=== PATIENT | female | born 1945 | race Caucasian/White ===

== ENCOUNTER → 2017-10-21 11:50 | Outpatient (CLI) | payer OTHER, SELFPAY ==
--- NOTE | 2017-10-21 11:52 | DI.US.S_ITS ---
PROCEDURE: US PELVIC COMPLETE INDICATIONS: POST MENOPAUSAL BLEEDING TECHNIQUE: Real-time scanning was performed of the pelvic organs, with image documentation. Additional endovaginal scanning was necessary due to incomplete visualization of the adnexal and endometrial structures by transabdominal scanning. COMPARISON: None. FINDINGS: Transabdominal scanning: Limited scanning through the kidneys shows no hydronephrosis. The kidneys measure 9.8 CM right and 10.8 CM left. No pathologic free abdominal or pelvic fluid. Endovaginal scanning: Uterus: Uterus is normal in size at 3.4 x 4.5 x 6.0 cm. The endometrium measures 5.4 mm in combined thickness. There is a mid anterior intramural fibroid measuring 4 x 10 x 11 mm. Ovaries: Ovaries are nonvisualized despite transvaginal imaging. IMPRESSION: 1. Endometrial thickness of 5.4 mm is slightly above the upper limits of normal for postmenopausal status with vaginal bleeding of 5.0 mm. Findings could represent endometrial hyperplasia . 2. Ovaries are nonvisualized. 3. Small 1 cm sized intramural fibroid Dictated by: Joel Santillan M.D. on 10/21/2017 at 12:48 Approved by: Joel Santillan M.D. on 10/21/2017 at 12:52
== END ==
PROVIDERS: Family Provider Physician Assistant; PCP Physician Assistant; Visit Provider Physician Assistant
DX: N95.0 Postmenopausal bleeding (principal); D25.1 Intramural leiomyoma of uterus; R93.8 Abnormal findings on diagnostic imaging of other specified body structures
CPT/HCPCS: 76830; 76856

== ENCOUNTER → 2017-10-25 10:30 | Outpatient (CLI) | payer OTHER, SELFPAY ==
--- NOTE | 2017-10-25 | DI.MG.S_ITS ---
BILATERAL DIGITAL SCREENING MAMMOGRAM 3D/2D WITH CAD: 10/25/2017 CLINICAL: Routine screening. Family history of breast cancer. Comparison is made to exams dated: 10/23/2016 mammogram, 10/18/2015 mammogram, and 08/16/2014 mammogram - [facility]. There are scattered fibroglandular elements in both breasts. Current study was also evaluated with a Computer Aided Detection (CAD) system. There are benign vascular calcifications in both breasts. There also is a biopsy clip in the right breast. No significant masses, calcifications, or other findings are seen in either breast. There has been no significant interval change. IMPRESSION: BENIGN There is no mammographic evidence of malignancy. A 1 year screening mammogram is recommended. This exam was interpreted at Station ID: [id number]. NOTE: For mammograms, a report in lay terms will be sent to the patient. Approximately 15% of breast malignancies will not be visualized mammographically. In the management of a palpable breast mass, a negative mammogram must not discourage biopsy of a clinically suspicious lesion. Electronically Signed By: Leonor [email or web address]/[email or web address]:10/25/2017 12:52:10 letter sent: Normal Exam ACR BI-RADS Category 2: Benign Finding(s) 3342F
== END ==
PROVIDERS: Family Provider Physician Assistant; PCP Physician Assistant; Visit Provider Physician Assistant
DX: Z12.31 Encounter for screening mammogram for malignant neoplasm of breast (principal); Z80.3 Family history of malignant neoplasm of breast
CPT/HCPCS: 77063; 77067

== ENCOUNTER 2017-11-13 08:33 | Day surgery (SDC) | payer OTHER, SELFPAY ==
[2017-11-13] MEDS: SODIUM CHLORIDE 0.9% 1,000 ML 42 ML IV (09:18)
[2017-11-13 09:19] VITALS: BP 158/76; PULSE 84; RESP 16; TEMP 36.1; O2SAT 94; BMI 37.2
--- NOTE | 2017-11-13 09:59 | PM.OP.ENDO ---
Operative Date/Time/Diagnoses Date of procedure: 11/13/17 Time of procedure: 10:00 Pre-op diagnosis: See indication Post-op diagnosis: other Procedure & Clinicians Study performed: EGD Same procedure as scheduled: Yes Indications: Severe GE reflux Surgeon: Dov Dos Santos Procedure Notes Procedure in detail: After informed consent was obtained the patient was placed in the left lateral decubitus position. Video upper scope was placed into the oropharynx and with the patient all told the esophagus but the esophagus stomach and duodenum were carefully examined. On withdrawal retroflex view of the GE junction was performed. The scope was removed. The patient tolerated procedure well Blood loss none Complications none Sedation Versed 4 mg fentanyl 100 mcg IV titration Total sedation time 12 min Findings 1. Completely normal esophagus with no evidence of abnormal tissue above the level of the gastric folds and no esophagitis 2. Mild streaky gastric erythema biopsies taken to rule out Helicobacter 3. Normal duodenal bulb and sweep I would continue her on her current medication but if she would like some direction as to how to adjust her medication she should follow up in the office. All
--- NOTE | 2017-11-13 10:15 | PM.HP.1 ---
History of Present Illness Date Patient Seen: 11/13/17 Time Patient Seen: 10:15 Chief complaint: [id number] Narrative: History of adenomatous colon polyps Patient History Medical History Diabetes (Chronic Unknown) Hyperlipemia (Chronic Unknown) Hypertension (Chronic Unknown) Osteoarthritis (Chronic Unknown) Surgical History Hx of cataract surgery (Resolved Unknown) Family & Social History Social History: household members spouse Tobacco & Substance use: Smoking Status Former smoker alcohol intake former Meds Home Medications Medication Instructions Recorded Confirmed Type Glucose: Home Monitor dev #1 04/09/12 10/08/17 Rx aspirin 81 mg PO QDAY #0 07/09/12 10/08/17 History lisinopril [Prinivil] 20 mg PO Q DAY #90 tab 08/29/16 10/08/17 Rx triamterene-hydrochlorothiazid 1 cap PO QDAY #90 cap 08/29/16 10/08/17 Rx [Dyazide] ascorbic acid (vitamin C) 500 mg PO QDAY #0 02/28/17 10/08/17 History [place] ea BID #200 06/03/17 10/08/17 Rx Glucose: Test Strips str BID #100 06/26/17 10/08/17 Rx Lancets 0 dev BID #100 06/26/17 10/08/17 Rx simvastatin [Zocor] 10 mg PO HS #90 tab 06/26/17 10/08/17 Rx metformin 1,000 mg tablet 1,000 mg PO BID #180 tab 09/09/17 10/08/17 Rx cholecalciferol (vitamin D3) 2,000 2,000 unit PO DAILY 09/23/17 10/08/17 History unit capsule fexofenadine 180 mg tablet 180 mg PO DAILY 09/23/17 10/08/17 History insulin NPH isophane U-100 human 50 unit SUBCUT BID ml 09/23/17 10/08/17 History 100 unit/mL subcutaneous suspension insulin regular human 10 unit SUBCUT TID ml 09/23/17 10/08/17 History U-500concentrate 500 unit/mL subcutaneous soln Allergies Allergy/AdvReac Type Severity Reaction Status Date / Time No Known Drug Allergies Allergy Verified 11/13/17 09:38 Exam Vital Signs (past 8 hours): - 11/13/17 09:19 Temperature 97 F L Pulse Rate 84 Respiratory Rate 16 Blood Pressure 158/76 H Pulse Oximetry 94 Oxygen Delivery Method Room Air Narrative Exam Narrative: Oropharynx free of lesions Chest clear to auscultation percussion Cardiac exam reveals no S3 or murmur Assessment & Plan Plan: Assessment/Plan Narrative: Personal history of colon polyps, need for colonoscopy. Risks, benefits, alternatives have been explained.
--- NOTE | 2017-11-13 10:31 | PM.OP.ENDO ---
Operative Date/Time/Diagnoses Date of procedure: 11/13/17 Time of procedure: 10:31 Pre-op diagnosis: See indications Post-op diagnosis: same (See findings) Procedure & Clinicians Study performed: Colonoscopy Same procedure as scheduled: Yes Indications: Personal history of colon polyps Surgeon: Dov Dos Santos Procedure Notes Procedure in detail: After informed consent was obtained the patient was placed in left lateral decubitus position. The video colonoscope was introduced the rectum slowly advanced to the cecum. On slow withdrawal mucosa was carefully examined. Preparation was good. Scope was removed. The patient tolerated the procedure well. Blood loss none Complications none Sedation Versed 6 mg fentanyl 150 mcg IV titration Total sedation time 20 min Findings 1. Extensive sigmoid and left-sided diverticulosis with some adhesed segments that were uncomfortable for the patient. No evidence of diverticulitis or other inflammation. 2. Otherwise negative colonoscopy to cecum. Patient will be follow up colonoscopy in 5 years
[2017-11-13] MEDS: fentaNYL 250 MCG/5 ML INJ IV (10:52)
[2017-11-13] MEDS: MIDAZOLAM 5 MG/5 ML VIAL IV (10:52)
[2017-11-13 11:09] VITALS: BP 94/70; PULSE 77; RESP 14; TEMP 36.7; O2SAT 92
[2017-11-13 11:14] VITALS: BP 87/51; PULSE 71; RESP 16; O2SAT 93
[2017-11-13 11:29] VITALS: BP 110/60; PULSE 69; RESP 12; TEMP 36.3; O2SAT 94
== END 2017-11-13 11:41 | disposition home or self-care (01) ==
PROVIDERS: PCP Physician Assistant; Visit Provider Internal Medicine Gastroenterology
PROC: 0DJD8ZZ Inspection of Lower Intestinal Tract, Via Natural or Artificial Opening Endoscopic (ICD-10-PCS; CPT 45378; principal; 2017-11-13 10:30)
DX: K57.30 Diverticulosis of large intestine without perforation or abscess without bleeding (principal); E11.9 Type 2 diabetes mellitus without complications; E78.5 Hyperlipidemia, unspecified; I10 Essential (primary) hypertension; Z87.891 Personal history of nicotine dependence
CPT/HCPCS: G0105; J2250; J3010

== ENCOUNTER → 2017-11-25 14:29 | Outpatient (CLI) | payer OTHER, SELFPAY ==
--- NOTE | 2017-11-25 | DI.MRI.S_ITS ---
PROCEDURE: MR KNEE RT WO CON INDICATIONS: PAIN IN KNEE TECHNIQUE: Noncontrast sagittal PD fast spin echo and T2 fast spin echo with fat saturation, sagittal 3-D FLASH with fat saturation; coronal T1 spin echo and PD fast spin echo with fat saturation, and axial PD fast spin echo with fat saturation through the knee. COMPARISON: None. FINDINGS: Image quality: Excellent. Menisci: There is peripheral displacement of medial meniscus with bowing of medial collateral ligament. A complex tear involving body and posterior horn of medial meniscus is likely present extending to superior and inferior articulating surfaces. There is also suggestion of oblique tear involving anterior horn of lateral meniscus extending to inferior articulating surface. The meniscal root ligaments appear intact. Cruciate ligaments: The anterior and posterior cruciate ligaments appear intact. Medial structures: The medial collateral ligament appears intact. The posterior oblique ligament, semimembranosus tendon insertions, oblique popliteal ligament, and meniscocapsular junction appear intact. Visualized portions of the pes anserinus tendons appear normal. No abnormal bursal fluid. Lateral structures: The lateral collateral ligament, long and short heads of the biceps femoris tendon appear intact. The popliteus tendon appears normal; the popliteofibular ligament appears intact. The posterosuperior and anteroinferior popliteomeniscal fascicles appear intact. The arcuate and fabellofibular ligaments appear intact, on either side of the lateral inferior geniculate artery. Iliotibial band appears normal. Anterior structures: The quadriceps tendon is intact. There is suggestion of tendinosis involving proximal patellar tendon at its inferior patella insertion. No patella tendon rupture. Patellar alignment is normal. No femoral trochlear dysplasia or ventral trochlear prominence. No edema in the infrapatellar fat pad. Bones and cartilage: No bone marrow contusions or fractures. Moderate tricompartmental osteophyte is seen most prominent in the medial femoral tibial compartment. Patellar cartilage is grossly intact. Joint space: There is small to moderate amount of joint effusion.. No Rhodes's cyst. Normal appearing synovial plicae are incidentally noted. IMPRESSION: 1. Moderate tricompartmental osteoarthritis most prominent in medial femorotibial compartment. Small to moderate amount of joint effusion. No fracture or dislocation. No gross loose body. 2. Complex tear involving body and posterior horn of medial meniscus extending to both superior and inferior articulating surfaces. Peripheral displacement of the meniscus bowing medial collateral ligament. 3. Suggestion of subtle oblique tear involving anterior horn lateral meniscus extending to inferior articulating surface. 4. Cruciate ligaments are intact. 5. Tendinosis involving proximal patellar tendon at its inferior patella insertion. Dictated by: Edgard Moses M.D. on 11/25/2017 at 19:11 Approved by: Edgard Moses M.D. on 11/25/2017 at 19:15
== END ==
PROVIDERS: PCP Physician Assistant; Visit Provider Orthopaedic Surgery
DX: M25.561 Pain in right knee (principal); M17.11 Unilateral primary osteoarthritis, right knee; S83.231A Complex tear of medial meniscus, current injury, right knee, initial encounter
CPT/HCPCS: 73721

== ENCOUNTER → 2017-12-18 09:23 | Outpatient (CLI) | payer OTHER, SELFPAY ==
[2017-12-18 09:40] LABS: Bacteria Urine None Seen; RBC Urine None Seen (0-5/HPF); WBC Urine None Seen (0-5/HPF)
[2017-12-18 10:23] LABS: Add Manual Diff / Slide Review NO; Basophils Percent Auto 0.8 % (0-2); Eosinophils Percent Auto 4.5 % (2-4); Hematocrit 40.3 % (36-46); Hemoglobin 13.6 g/dL (12.0-16.0); Lymphocytes Percent Auto 21.5 % (25-40); Mean Corpuscular HGB Conc 33.6 % (30-36); Mean Corpuscular Hemoglobin 31.4 PG (26-34); Mean Corpuscular Volume 93.4 fL (80-100); Neutrophils Absolute Auto 4200 /uL (3000-5900); Neutrophils Percent Auto 64.2 % (50-75); Platelet Count 205 X10^3/uL (150-400); Red Blood Cell Count 4.32 X10^6/uL (4.0-5.2); Red Cell Distribution Width 13.7 % (11.6-14.8); White Blood Cell Count 6.6 X10^3/uL (4.5-11.0)
[2017-12-18 10:51] LABS: Blood Urea Nitrogen 36 mg/dL (7-17); Calcium 10.4 mg/dL (8.4-10.2); Carbon Dioxide 27 mmol/L (22-32); Chloride 101 mmol/L (98-107); Estimated Glomerular Filt Rate > 60.0 mL/min (>60); Glucose 151 mg/dL (80-110); HEMOLYSIS < 15 (0-50); Potassium 4.6 mmol/L (3.4-5.1); Sodium 141 mmol/L (137-145)
[2017-12-18 11:03] LABS: Appearance Urine UA CLEAR; Bilirubin Urine UA NEGATIVE (NEGATIVE); Color Urine UA YELLOW; Glucose Urine UA NEGATIVE (Normal); Ketones Urine UA NEGATIVE (NEGATIVE); Leukocyte Esterase Urine UA NEGATIVE (NEGATIVE); Nitrite Urine UA Negative (Negative); Occult Blood Urine UA NEGATIVE (Negative); Protein Urine UA NEGATIVE (Negative); Urobilinogen Urine UA 0.2 E.U./dL (0.2)
[2017-12-18 11:21] LABS: Hemoglobin A1C% w Est Avg Glu 7.2 % (4.0-6.0)
[2017-12-18 12:00] LABS: Culture Indicated Urine Cult Not Indicated; Urine Comments Microscopic Normal
== END ==
PROVIDERS: PCP Physician Assistant; Visit Provider Orthopaedic Surgery
DX: Z01.818 Encounter for other preprocedural examination (principal); Z01.812 Encounter for preprocedural laboratory examination; N39.9 Disorder of urinary system, unspecified; R73.09 Other abnormal glucose
CPT/HCPCS: 36415; 80048; 81001; 83036; 85025; 93005

== ENCOUNTER 2018-01-14 06:07 | Inpatient (IN) | payer OTHER, SELFPAY ==
[2017-12-30 09:57] VITALS: BMI 36.8
[2018-01-14] VITALS (14 sets, daily range): BP systolic 80–144; BP diastolic 35–73; PULSE 57–89; RESP 16–19; TEMP 36.4–36.9; O2SAT 93–99; BMI 36.8
--- NOTE | 2018-01-14 06:00 | DI.RAD.S_ITS ---
PROCEDURE: XR KNEE RT 1TO2V INDICATIONS: prosthesis placement TECHNIQUE: 2 view(s) of the knee acquired. COMPARISON: None. FINDINGS: Bones: Patient is status post knee joint arthroplasty. Hardware components are in expected positions. Visualized bony structures are intact. Soft tissues: Overlying postoperative changes are noted. IMPRESSION: Expected post surgical appearance. Dictated by: Brenda Quinn M.D. on 01/14/2018 at 11:33 Approved by: Brenda Quinn M.D. on 01/14/2018 at 11:33
[2018-01-14] MEDS: PREGABALIN 75 MG CAPSULE PO (06:50)
[2018-01-14] MEDS: ACETAMINOPHEN 325 MG TABLET 975 MG PO ×3 (06:50→20:55)
[2018-01-14] MEDS: CELECOXIB 200 MG CAPSULE PO (06:51)
[2018-01-14] MEDS: VANCOMYCIN 1,000 MG/200 ML FROZ.PIGGY 200 MG IV (07:01)
--- NOTE | 2018-01-14 07:44 | SUR.PREOP ---
Block start time [0745 . Monitoring initiated and maintained throughout procedure. Oxygen and medications given per anesthesiologist instructions. Patient remained stable throughout procedure, no adverse reactions noted. Block end time [0750].
--- NOTE | 2018-01-14 07:45 | PM.PREOP ---
Pre-operative Note Interval Note Pre-op Check: Yes History & Physical Reviewed by Physician and Yes Exam Performed Changes: No
--- NOTE | 2018-01-14 07:45 | PM.OP.1 ---
Operative Date/Time/Diagnoses Date of procedure: 01/14/18 Time of procedure: 07:59 Pre-op diagnosis: Right knee osteoarthritis Post-op diagnosis: same Procedure & Clinicians Procedure: right total knee arthroplasty Same procedure as scheduled: Yes Indications: The patient has had progressively worsening right knee pain with radiographic changes consistent with arthritis. Non-operative management has failed and the patient has requested total knee replacement. The risks, benefits and alternatives to surgery were discussed with the patient prior to proceeding. Risks discussed included, but were not limited to, failure to relieve pain, stiffness, infection, nerve damage, deep venous thrombosis, pulmonary embolism, stroke, coma, heart attack, permanent paralysis and , as well as the potential need for eventual revision of the prosthetic. Surgeon: Esperanza Piña Brim Pouncing Machine Operator: Anurag Vasquez Anesthesia Type: General, Spinal and Peripheral nerve block Operative Notes Findings: severe right knee osteoarthritis, good stability and balance Closure Type: primary Implants & Drains: Piña and Nephew Siobhan BCS2 35mm patella, 5 femur, 10 poly, tibia 3 Applied: drain(s) Estimated Blood Loss (mL): 250 Tourniquet time (min): 70 Procedure in detail: The patient was seen in the pre-operative area, where the patient identified the right knee as the operative site and this was marked with my initials. The patient received pre-operative antibiotics, and was taken to the operating room and placed on the operative table in the supine position. After satisfactory anesthesia, a air purifier servicer out was performed. The right leg was encircled with a tourniquet about the proximal thigh, and the leg was prepared from the toes to the tourniquet with ChloroPrep in the usual fashion and draped through sterile drapes. The leg was elevated and exsanguinated with Eschmark bandage and the tourniquet inflated to [250] mmHg pressure. The knee was approached through an approximately 18 cm incision centered over the patella and carried into the knee through a medial parapatellar arthrotomy. A portion of the medial and lateral meniscus was resected. Soft tissue was carefully mobilized around the patella the patella was measured with a caliper. Bone was resected from the patella and the patellar height was reconstituted with up an appropriate sized patellar component. A cover was then placed on the patella. A small amount of additional medial and lateral meniscus was resected. The visionare guide fit well to the distal femur. It looked like an appropriate distal femoral cut and the cut was made without difficulty. The rotation was assessed and the appropriate size femoral guide was placed on the distal femur and finishing cuts were made. There was no evidence of notching. The anterior, posterior and chamfer cuts were then made. The posterior osteophytes and soft tissues were then removed. The posterior capsule was injected with part of a mixture of 30 ml 0.25% Marcaine mixed with 20 ml Exparel for post operative pain control. The remainder of this mixture was injected into the capsule and subcutaneous tissues during cement curing. The tibia was prepared and the visionaire guide fit well to the distal tibia. The rotation was assessed. The patient was placed in extension residual medial and lateral meniscus as well as any residual bone was carefully resected. [No] additional tibia was resected. Hemostasis was achieved especially posteriorly. Additional local was injected into the posterior capsule. The extension gap was assessed and additional releases for gap balancing were performed as necessary. It was checked with the gap disability hearing officer. The femoral component was trial was placed and the notch was finished. Trial tibial and femoral components were then placed and the knee placed through a range of motion. Range of motion was [0-130], with good stability throughout the range. The trials were then removed, and the tibia was finished. The bone was prepared with pulsatile lavage, and dried with a sponge. Cement was applied and the final prosthetics placed. Excess cement was removed during and after cement curing. A brief Betadine soak was performed. After confirming there was no extruded cement posteriorly, the final tibial insert was placed. The knee was copiously irrigated and the tourniquet deflated. Hemostasis was obtained with the Bovie. A drain was placed and brought out superolaterally. The capsule was closed with interrupted # 1 black braided suture. The subcutaneous layer was closed with barbed sutures, and the skin with a running 3-0 V-Lock suture and Surgical glue. An Aquacel Ag dressing was applied and the patient was taken to recovery having tolerated the procedure well. Complications: none Condition: stable Disposition: Acute Care Plan for aftercare: The patient will be maintained on a standard total knee replacement protocol with weight bearing as tolerated. The patient will receive aspirin and sequential compression devices for DVT prophylaxis. The patient will be discharged home when safe for the home environment.
[2018-01-14] MEDS: LACTATED RINGERS 1,000 ML 42 ML IV ×3 (07:46→10:37)
[2018-01-14] MEDS: MIDAZOLAM 2 MG/2 ML VIAL IV (07:47)
[2018-01-14] MEDS: fentaNYL 100 MCG/2 ML INJ IV (07:48)
[2018-01-14] MEDS: INSULIN REGULAR 100 UNIT/ML 3 ML VIAL SUBCUT ×2 (07:49→20:49)
--- NOTE | 2018-01-14 07:51 | P.OP_ITS ---
Operative Date/Time/Diagnoses Date of procedure: 01/14/18 Time of procedure: 07:59 Pre-op diagnosis: Right knee osteoarthritis Post-op diagnosis: same Procedure & Clinicians Procedure: right total knee arthroplasty Same procedure as scheduled: Yes Indications: The patient has had progressively worsening right knee pain with radiographic changes consistent with arthritis. Non-operative management has failed and the patient has requested total knee replacement. The risks, benefits and alternatives to surgery were discussed with the patient prior to proceeding. Risks discussed included, but were not limited to, failure to relieve pain, stiffness, infection, nerve damage, deep venous thrombosis, pulmonary embolism, stroke, coma, heart attack, permanent paralysis and , as well as the potential need for eventual revision of the prosthetic. Surgeon: Esperanza Piña Railroad Hand: Anurag Vasquez Anesthesia Type: General, Spinal and Peripheral nerve block Operative Notes Findings: severe right knee osteoarthritis, good stability and balance Closure Type: primary Implants & Drains: Piña and Nephew Siobhan BCS2 35mm patella, 5 femur, 10 poly , tibia 3 Applied: drain(s) Estimated Blood Loss (mL): 250 Tourniquet time (min): 70 Procedure in detail: The patient was seen in the pre-operative area, where the patient identified the right knee as the operative site and this was marked with my initials. The patient received pre-operative antibiotics, and was taken to the operating room and placed on the operative table in the supine position. After satisfactory anesthesia, a second time worker out was performed. The right leg was encircled with a tourniquet about the proximal thigh, and the leg was prepared from the toes to the tourniquet with ChloroPrep in the usual fashion and draped through sterile drapes. The leg was elevated and exsanguinated with Eschmark bandage and the tourniquet inflated to [250] mmHg pressure. The knee was approached through an approximately 18 cm incision centered over the patella and carried into the knee through a medial parapatellar arthrotomy. A portion of the medial and lateral meniscus was resected. Soft tissue was carefully mobilized around the patella the patella was measured with a caliper. Bone was resected from the patella and the patellar height was reconstituted with up an appropriate sized patellar component. A cover was then placed on the patella. A small amount of additional medial and lateral meniscus was resected. The visionare guide fit well to the distal femur. It looked like an appropriate distal femoral cut and the cut was made without difficulty. The rotation was assessed and the appropriate size femoral guide was placed on the distal femur and finishing cuts were made. There was no evidence of notching. The anterior, posterior and chamfer cuts were then made. The posterior osteophytes and soft tissues were then removed. The posterior capsule was injected with part of a mixture of 30 ml 0.25% Marcaine mixed with 20 ml Exparel for post operative pain control. The remainder of this mixture was injected into the capsule and subcutaneous tissues during cement curing. The tibia was prepared and the visionaire guide fit well to the distal tibia. The rotation was assessed. The patient was placed in extension residual medial and lateral meniscus as well as any residual bone was carefully resected. [No] additional tibia was resected. Hemostasis was achieved especially posteriorly. Additional local was injected into the posterior capsule. The extension gap was assessed and additional releases for gap balancing were performed as necessary. It was checked with the gap maintenance fitter. The femoral component was trial was placed and the notch was finished. Trial tibial and femoral components were then placed and the knee placed through a range of motion. Range of motion was [ 0-130], with good stability throughout the range. The trials were then removed, and the tibia was finished. The bone was prepared with pulsatile lavage, and dried with a sponge. Cement was applied and the final prosthetics placed. Excess cement was removed during and after cement curing. A brief Betadine soak was performed. After confirming there was no extruded cement posteriorly, the final tibial insert was placed. The knee was copiously irrigated and the tourniquet deflated. Hemostasis was obtained with the Bovie. A drain was placed and brought out superolaterally. The capsule was closed with interrupted # 1 black braided suture. The subcutaneous layer was closed with barbed sutures, and the skin with a running 3-0 V-Lock suture and Surgical glue. An Aquacel Ag dressing was applied and the patient was taken to recovery having tolerated the procedure well. Complications: none Condition: stable Disposition: Acute Care Plan for aftercare: The patient will be maintained on a standard total knee replacement protocol with weight bearing as tolerated. The patient will receive aspirin and sequential compression devices for DVT prophylaxis. The patient will be discharged home when safe for the home environment.
[2018-01-14] MEDS: CEFAZOLIN 2 GM/100 ML FROZ.PIGGY IV ×3 (08:10→23:59)
--- NOTE | 2018-01-14 08:32 | SUR.OPER ---
Supine on padded OR bed. Pillow under head, arms secured on padded armboards <90 degree abduction. Safety belt across torso. Non-operative leg secured with tape over blanket over lower leg. Operative leg secured in DeMayo/Vasquez positioner. Foam padded brace at thigh of operative leg.
[2018-01-14] MEDS: BUPIVACAINE LIPOSOME 266 MG/20 ML VIAL INJ (08:46)
[2018-01-14] MEDS: BUPIVACAINE 0.25% W/ EPI VIAL 50 ML INJ (08:46)
[2018-01-14] MEDS: LACTATED RINGERS 1,000 ML 125 ML IV ×2 (11:45→20:53)
[2018-01-14] MEDS: OXYCODONE IR 5 MG TABLET PO ×3 (12:08→23:59)
[2018-01-14] MEDS: INSULIN REGULAR 100 UNIT/ML 3 ML VIAL 10 UNIT SUBCUT ×2 (13:35→16:53)
[2018-01-14] MEDS: IBUPROFEN 600 MG TABLET PO (13:46)
--- NOTE | 2018-01-14 13:58 | PT.IIE ---
Addendum entered and electronically signed by Gerri Ramírez, PT 01/14/18 16:00: I certify I directly supervised and guided this session, which was actually 35 minutes, not 223 minutes long. Bairon Ramírez DPJose Enrique Original Note: Current Diagnoses Unilateral primary osteoarthritis, right knee (01/14/18) Surgery Performed Operation Date: 01/14/18 07:45 Actual Procedures p Total Knee Arthroplasty(Right) - Esperanza Piña MD Surgical History (Last Updated 12/30/17 @ 10:18 by Roselia Maldonado RN) Hx of cataract surgery (Resolved Unknown) Medical History (Last Updated 12/30/17 @ 10:23 by Roselia Maldonado RN) Back pain (Acute) Diverticulosis (Acute) Pneumonia (Acute) Uterine fibroid (Acute) Diabetes (Chronic Unknown) Hyperlipemia (Chronic Unknown) Hypertension (Chronic Unknown) Osteoarthritis (Chronic Unknown) Physical Therapy Inpatient Evaluation/Re-Eval M1 PT/OT-IP Prior Functional Status Start: 01/14/18 15:22 Freq: NEEDED Status: Active Protocol: Document 01/14/18 13:58 (Rec: 01/14/18 15:45 [email or web address]) Medical Review Prior Functional Status Medical History Reviewed Yes Communication No previous deficits noted Mobility and Gait Pt was previously independent with all mobiliites and no AD. Walking tolerance was 5000- 6000 steps before her knees became worse recently. Social History Household Members spouse Living Arrangements House Number of Floors (Floors) Two Floors Number of Stairs To Enter/Railing? Flat entry. Pt also has 2 steps B rails inside that go to a mechanical stair lift chair to the 2nd floor. Home Environment High Toilet Walk in Shower Home Equipment Front Wheel Walker Straight Cane Employment Status Retired Additional Social History Comment will be avaliable 08/10 for assist at home when d/c. Pt has 2 daughters that live nearby that are avaliable for intermittent assist. Pt also owns stair lift chair for going to 2nd floor. Home is set up for pt to live entirely on the first floor. M2 PT-IP Current Condition Start: 01/14/18 15:22 Freq: NEEDED Status: Active Protocol: Document 01/14/18 13:58 (Rec: 01/14/18 15:45 [email or web address]) Physical Therapy Current Condition Current Condition Evaluation Date 01/14/18 Treatment Diagnosis R TKA; difficulty walking Onset Date 01/14/2018 Weight Bearing Status Weight Bearing Status Weight Bear as Tolerated M3 PT-IP Subjective Start: 01/14/18 15:22 Freq: NEEDED Status: Active Protocol: Document 01/14/18 13:58 (Rec: 01/14/18 15:45 [email or web address]) Subjective Physical Therapy Visit Type Type Initial Evaluation Visit Start Time 13:58 Visit Stop Time 14:33 Total Visit Minutes 223 Number of PANEL FITTER Visits 0 Physical Therapy Visit Comments Patient Comments Pt agreeable to mobilize with PT. Patient Goals Pt plans to go home with at d/c Therapy Pain Assessment Pain When Pain Assessed During Mobility Pain Present Pain Present Pain Reported Location Right Knee Intensity 5 Scale Used Numeric (1 - 10) Pain Management Techniques Apply Cold Elevation Modification of Treatment Re-positioning Timing of Activity with Medications M4 PT-IP Mobility and Gait Start: 01/14/18 15:22 Freq: NEEDED Status: Active Protocol: Document 01/14/18 13:58 (Rec: 01/14/18 15:45 [email or web address]) PT-Bed Mobility Assessment Supine to Sit Supine to Sit Minimal Assistance Scooting Scooting to Edge of Bed Standby Assistance PT-Transfer Assessment Sit to and From Stand Sit to and from Stand Contact Guard Assistance Minimal Assistance Equipment Transfer Assistive Device Gait Belt Front Wheeled Walker Orthotic/Prosthetic Devices or Brace: No Transfers Transfer Destination Chair Comments Mobility Comments supine BP 111/62, HR 62. supine > sit required Shala for lifting leg off bedside as well as to assist pt upright. Mod cues needed for hand placement. EOB BP 117/73, HR 63. Sit > stand with fww is Shala for balance with cues for hand placement and to power off LLE. Stand > sit (post ambulation) is CGA with fww. Gait Assessment Gait Gait Assistance Required: Contact Guard Assist Distance (Feet) 10 Able to Maintain Weight Bearing Status Yes During Gait Assistive Devices Assistive Device Gait Belt Front Wheeled Walker Orthotic/Prosthetic Devices or Brace: No Gait Deviations General Gait Pattern Antalgic Decreased Stride Length Decreased Feet Clearance Factors Limiting Gait Function Factors Limiting Gait Function Decreased Activity Tolerance Decreased Strength Limited Range of Motion Pain Poor Balance Poor Safety Awareness Comments Gait Comments Pt ambulated 10 ft CGA with fww and about alf through stated feeling naseus. Assisted pt to recliner where she dry heaved for 1-2 mins. Pt cued for deep breathing, given wet cloth to forehead and emesis bag. Nursing notified/came in to assist. Seated BP 120/71 HR 66. Pt was left with nursing. PT-Balance Assessment Sitting Balance and Reactions Static Sitting Balance Ability Good Dynamic Sitting Balance Ability Good Standing Balance and Reactions Static Standing Balance Ability Fair Dynamic Standing Balance Ability Fair Device Used fww M5 PT-IP Objective Assessments Start: 01/14/18 15:22 Freq: NEEDED Status: Active Protocol: Document 01/14/18 13:58 (Rec: 01/14/18 15:45 [email or web address]) Orientation Orientation/Cognition Level of Alertness Alert Orientation Name Birthday Place Situation Language Function Ability No Deficits Noted Safety Awareness Decreased Safety Awareness Gross Range of Motion Lower Extremity ROM Assessment Right Impaired Impairments R knee flexion ~30 degrees and painful. Strength Lower Extremity Strength Assessment Right Impaired Hip 4 Knee 3 Ankle 5 Comments Strength Comments LLE WNL M6 PT-IP Treatment Start: 01/14/18 15:22 Freq: NEEDED Status: Active Protocol: Document 01/14/18 13:58 (Rec: 01/14/18 15:45 [email or web address]) Physical Therapy Treatment Exercises Exercises Ankle Pumps Quad Sets Heel Slides Straight Leg Raises Short Arc Quads Passive Knee Extension Hang Seated Knee Flexion/Extension Education Education Provided Precautions Weight Bearing Status Post-Op Packet Safety M7 PT-IP Assessment and Plan Start: 01/14/18 15:22 Freq: NEEDED Status: Active Protocol: Document 01/14/18 13:58 (Rec: 01/14/18 15:45 [email or web address]) PT Summary Assessment and Plan Potential Rehabilitation Potential Good Status of Condition at Evaluation Stable Summary Impairments Pain ROM Strength Balance Bed Mobility Transfers Gait Activity Tolerance Progress Towards Goals Progressing Toward Goals Assessment Summary Pt s/p RTKA with difficulty walking. Pt was able to ambulate 10 ft with fww and CGA but had episode of dry heaving. Min A needed for bed mob and sit > stand. Recommend d/c to home with 24/ 7 assist and f/u OP PT when pt is medically stable. Goals Bed Mobility Goal Standby Assistance Transfer Goal Standby Assistance Gait Goal Standby Assistance Gait Distance 150 Other Goals up/down 2 steps B rails with CGA Frequency of Treatment Frequency Of Treatment Twice a Day Treatment Plan Physical Therapy Treatment Plan Bed Mobility Training Transfer Training Gait Training Therapeutic Exercise Balance Retraining Post Op Education Discharge Planning Hot or Cold Pack Neuromuscular Re-ed Coordination Retraining Manual Therapy Other Recommendations and Next Treatment Ambulation. Stair climbing Focus Recommendations To Nursing Amount of Assist Needed 1 Person Assist Discharge Recommendations PT Discharge Recommendations Home with 24/7 Assist Outpatient PT
--- NOTE | 2018-01-14 14:08 | PC.NURSE ---
Day Shift- Report rec'd from COLTEN Silva in PACU at 1052 on current pt status. Pt arrived to unit at 1115. A&OX4, denied pain upon arrival, increased to 4/10 around 1205, Oxycodone po prn given at 1210 with satisfactory effect. Upon arrival, pt able to flex at ankles, weak to moderate dorsal and plantar flexion, able to slightly lift RLE off bed. pulses palpable, trace edema to dorsal bilateral feet. Right knee aquacel dressing CDI covered with khanh wrap, ice prn rotated around knee. Hemovac clamped upon arrival, unclamped at 1210 per orders, PACU report stated was clamped at 1001. Pt's at bedside. Oriented to call light and post op routines.
--- NOTE | 2018-01-14 14:54 | PM.CN ---
History of Present Illness Date Patient Seen: 01/14/18 Time Patient Seen: 14:00 Chief complaint: [id number] Reason for consult: Diabetes Requesting provider: Esperanza Piña Narrative: Patient is a 73-year-old female status post elective right TKR earlier today. We were consulted regarding management of patient's diabetes. She has long-standing diabetes which was not well controlled. She recently established with local hand booked folder and stitcher who started her on insulin with very good improvement in her blood sugar control. Last hemoglobin A1c was 7.2. Patient denies hypoglycemic episodes on insulin therapy. She denies complications of diabetes such as retinopathy, neuropathy or nephropathy. She has no cardiac problems. Recorded blood sugars in hospital have been mostly acceptable 114 up to 149 but she did have glucose of 242 just before supper. PFSH Medical History Back pain (Acute) Diverticulosis (Acute) Pneumonia (Acute) Uterine fibroid (Acute) Diabetes (Chronic Unknown) Hyperlipemia (Chronic Unknown) Hypertension (Chronic Unknown) Osteoarthritis (Chronic Unknown) Surgical History Hx of cataract surgery (Resolved Unknown) Family History Sister Breast cancer, Onset Age: 83 Social History household members: spouse Smoking Status: Former smoker Tobacco: How many years used: 8 second hand exposure: No alcohol intake: former substance use type: does not use Meds Home Medications Medication Instructions Recorded Confirmed Type aspirin 81 mg PO QDAY #0 07/09/12 01/14/18 History ascorbic acid (vitamin C) 500 mg PO QDAY #0 02/28/17 12/30/17 History simvastatin [Zocor] 10 mg PO HS #90 tab 06/26/17 01/14/18 Rx cholecalciferol (vitamin D3) 2,000 2,000 unit PO DAILY 09/23/17 12/30/17 History unit capsule fexofenadine 180 mg tablet 180 mg PO DAILY 09/23/17 01/14/18 History insulin NPH isophane U-100 human 25 unit SUBCUT QAM ml 09/23/17 01/14/18 History 100 unit/mL subcutaneous suspension lisinopril [Prinivil] 20 mg PO Q DAY #90 tab 11/21/17 01/14/18 Rx triamterene-hydrochlorothiazid 1 cap PO QDAY #90 cap 11/22/17 01/14/18 Rx [Dyazide] metformin 1,000 mg tablet 1,000 mg PO BID #180 tab 12/19/17 01/14/18 Rx empagliflozin [Jardiance] 10 mg PO QAM 12/30/17 01/14/18 History insulin NPH isoph U-100 human 28 unit SUBCUT BEDTIME 12/30/17 01/14/18 History [Humulin N NPH U-100 Insulin] insulin regular hum U-500 conc 10 unit SUBCUT TID 12/30/17 01/14/18 History Glucose: Home Monitor 1 dev MISCELLANEOUS DIRECTED 01/14/18 01/14/18 History Glucose: Test Strips 1 str MISCELLANEOUS BID 01/14/18 01/14/18 History Lancets 1 dev MISCELLANEOUS BID 01/14/18 01/14/18 History [place] 1 ea MISCELLANEOUS BID 01/14/18 01/14/18 History Allergies Allergy/AdvReac Type Severity Reaction Status Date / Time No Known Drug Allergies Allergy Verified 11/13/17 09:38 Review of Systems Review of Systems All systems reviewed & are unremarkable except as noted in HPI and below Exam Vital Signs (past 8 hours): - 01/14/18 07:04 01/14/18 10:10 01/14/18 10:15 Temperature 97.8 F 98.4 F Pulse Rate 76 83 87 Respiratory Rate 18 16 18 Blood Pressure 144/73 H 84/37 L 82/36 L Pulse Oximetry 95 97 95 01/14/18 10:20 01/14/18 10:25 01/14/18 10:30 Temperature Pulse Rate 89 84 86 Respiratory Rate 19 18 16 Blood Pressure 80/35 L 87/43 L 101/48 L Pulse Oximetry 94 94 96 01/14/18 10:43 01/14/18 10:58 01/14/18 11:15 Temperature 98.4 F 98.4 F 97.6 F Pulse Rate 84 76 80 Respiratory Rate 18 16 16 Blood Pressure 95/42 L 102/52 L 102/60 Pulse Oximetry 94 94 93 01/14/18 11:45 01/14/18 12:15 Temperature 97.6 F 97.7 F Pulse Rate 77 75 Respiratory Rate 16 16 Blood Pressure 94/63 113/70 Pulse Oximetry 94 99 Oxygen Delivery Method Room Air Oxygen Flow Rate 0 Narrative Exam Narrative: GENERAL: Patient is in no acute distress HEENT: Head normocephalic, atraumatic. Mucous membranes moist. CHEST: Clear to auscultation bilaterally. CARDIAC: Regular rate and rhythm. ABDOMEN: Nondistended, soft, nontender EXTREMITIES: no pretibial edema. NEUROLOGICAL: Alert, pleasant, no focal findings SKIN: Warm, dry, no petechiae, no rash Assessment & Plan Plan: Assessment/Plan Narrative: 1. Type 2 diabetes, insulin requiring: Patient appears well controlled by history and recent hemoglobin A1c. Agree with continuing her usual insulin regimen of NPH and are insulins with a carbohydrate controlled diet. I have added a medium dose NovoLog sliding scale while she is in hospital. I do not anticipate any major problems regarding her diabetes control postop her knee replacement. Thank you for consulting the hospitalist service. At this time, patient is not in further need of our assistance. Please notify us if she needs to be re-evaluated during her hospital stay.
[2018-01-14] MEDS: INSULIN NPH 100 UNIT/ML VIAL 28 UNIT SUBCUT (20:52)
[2018-01-14] MEDS: ASPIRIN EC 81 MG TABLET PO (20:55)
[2018-01-14] MEDS: DOCUSATE 100 MG CAPSULE PO (20:56)
[2018-01-14] MEDS: SIMVASTATIN 10 MG TABLET PO (20:56)
[2018-01-14] MEDS: METFORMIN HCL 500 MG TABLET 1000 MG PO (20:56)
[2018-01-15] MEDS: IBUPROFEN 600 MG TABLET PO ×2 (01:13→07:00)
[2018-01-15 03:35] VITALS: BP 109/59; PULSE 58; RESP 16; TEMP 36.6; O2SAT 96
[2018-01-15] MEDS: OXYCODONE IR 5 MG TABLET PO ×3 (05:05→11:23)
[2018-01-15 07:04] LABS: Hematocrit 35.9 % (36-46)
[2018-01-15 08:00] VITALS: BP 129/67; PULSE 63; RESP 16; TEMP 36.7; O2SAT 96
[2018-01-15] MEDS: ACETAMINOPHEN 325 MG TABLET 975 MG PO (08:21)
[2018-01-15] MEDS: DOCUSATE 100 MG CAPSULE PO (08:23)
[2018-01-15] MEDS: INFLUENZA VACCINE 0.5 ML SYRINGE IM (08:35)
[2018-01-15] MEDS: METFORMIN HCL 500 MG TABLET 1000 MG PO (08:41)
[2018-01-15] MEDS: TRIAMTERENE/HCTZ 37.5/25 TABLET 1 CAP PO (08:44)
[2018-01-15] MEDS: INSULIN REGULAR 100 UNIT/ML 3 ML VIAL 10 UNIT SUBCUT (08:50)
[2018-01-15] MEDS: INSULIN NPH 100 UNIT/ML VIAL 25 UNIT SUBCUT (08:56)
[2018-01-15] MEDS: CHOLECALCIFEROL (VITAMIN D3) 1,000 UNIT TABLET 2000 UNIT PO (10:06)
[2018-01-15] MEDS: ASPIRIN EC 81 MG TABLET PO (10:06)
[2018-01-15] MEDS: LISINOPRIL 20 MG TABLET PO (10:06)
[2018-01-15] MEDS: ASCORBIC ACID 500 MG TABLET PO (10:06)
[2018-01-15] MEDS: LORATADINE 10 MG TABLET PO (10:06)
--- NOTE | 2018-01-15 10:44 | PC.NURSE ---
Wound Care: Drain removed at 10:15 this AM, end intact, asymptomatic, tolerated well, covered with gauze and a transparent dressing. Patient instructed to remove gauze in 48 hrs.
--- NOTE | 2018-01-15 10:50 | PT.IPTN ---
Current Diagnoses Unilateral primary osteoarthritis, right knee (01/14/18) Surgery Performed Operation Date: 01/14/18 07:45 Actual Procedures p Total Knee Arthroplasty(Right) - Esperanza Piña MD Physical Therapy Treatment Note M2 PT-IP Current Condition Start: 01/14/18 15:22 Freq: NEEDED Status: Active Protocol: Document 01/14/18 13:58 (Rec: 01/14/18 15:45 [email or web address]) Physical Therapy Current Condition Current Condition Evaluation Date 01/14/18 Treatment Diagnosis R TKA; difficulty walking Onset Date 01/14/2018 Weight Bearing Status Weight Bearing Status Weight Bear as Tolerated M3 PT-IP Subjective Start: 01/14/18 15:22 Freq: NEEDED Status: Active Protocol: Document 01/15/18 10:39 SA (Rec: 01/15/18 10:50 SA [id number]) Subjective Physical Therapy Visit Type Type Treatment Note Visit Start Time 09:35 Visit Stop Time 10:05 Total Visit Minutes 30 Number of LABOR CUSTODIAN Visits 1 Physical Therapy Visit Comments Patient Comments Pt sitting up, present and agreeable to PT. Patient Goals to return home with . Therapy Pain Assessment Pain When Pain Assessed During Mobility Pain Present Pain Present Pain Reported Location Right Knee Intensity 4 Scale Used Numeric (1 - 10) Pain Management Techniques Apply Cold Re-positioning Timing of Activity with Medications M4 PT-IP Mobility and Gait Start: 01/14/18 15:22 Freq: NEEDED Status: Active Protocol: Document 01/15/18 10:39 SA (Rec: 01/15/18 10:50 SA [id number]) PT-Bed Mobility Assessment Rolling Type of Rolling Roll to Right Level of Assist Standby Assistance Supine to Sit Supine to Sit Standby Assistance Scooting Scooting to Edge of Bed Standby Assistance PT-Transfer Assessment Sit to and From Stand Sit to and from Stand Contact Guard Assistance Use of Upper Extremities Equipment Orthotic/Prosthetic Devices or Brace: No Transfers Transfer Destination Chair Comments Mobility Comments Pt denies feeling nauseus or light headed with mobilizing. Mod cues for safety and CGA- SBa with transfers and bed mobility. Gait Assessment Gait Gait Assistance Required: Contact Guard Assist Distance (Feet) 75 Able to Maintain Weight Bearing Status Yes During Gait Assistive Devices Assistive Device Gait Belt Front Wheeled Walker Orthotic/Prosthetic Devices or Brace: No Gait Deviations General Gait Pattern Antalgic Decreased Stride Length Decreased Feet Clearance Factors Limiting Gait Function Factors Limiting Gait Function Decreased Activity Tolerance Decreased Strength Limited Range of Motion Pain Poor Balance Poor Safety Awareness Comments Gait Comments Pt able to ambulated with FWW and SBA-CGA with cues for increasing WBing on RLE. Pt receptive to cues and education. Completed Stand pivot tx on/off toilet with SBA and use of FWW and grab bar. Stair Climbing Assessment Comments Stair Climbing Comments PT has one small step to enter home, states it more of a thresh hold than a step. M5 PT-IP Objective Assessments Start: 01/14/18 15:22 Freq: NEEDED Status: Active Protocol: Document 01/14/18 13:58 (Rec: 01/14/18 15:45 [email or web address]) Orientation Orientation/Cognition Level of Alertness Alert Orientation Name Birthday Place Situation Language Function Ability No Deficits Noted Safety Awareness Decreased Safety Awareness Gross Range of Motion Lower Extremity ROM Assessment Right Impaired Impairments R knee flexion ~30 degrees and painful. Strength Lower Extremity Strength Assessment Right Impaired Hip 4 Knee 3 Ankle 5 Comments Strength Comments LLE WNL M6 PT-IP Treatment Start: 01/14/18 15:22 Freq: NEEDED Status: Active Protocol: Document 01/15/18 10:39 SA (Rec: 01/15/18 10:50 SA [id number]) Physical Therapy Treatment Exercises Exercises Ankle Pumps Quad Sets Heel Slides Straight Leg Raises Short Arc Quads Passive Knee Extension Hang Seated Knee Flexion/Extension Education Education Provided Precautions Weight Bearing Status Post-Op Packet Safety Equipment Issued Equipment Type and Company As per pt has, BSC to go over toilet, FWW, grab bars in home and ice packs. Other Treatments Other Treatment Performed Discussion with patient and about OP PT, equipment , icing and HEP. M7 PT-IP Assessment and Plan Start: 01/14/18 15:22 Freq: NEEDED Status: Active Protocol: Document 01/15/18 10:39 SA (Rec: 01/15/18 10:50 SA [id number]) PT Summary Assessment and Plan Potential Rehabilitation Potential Good Status of Condition at Evaluation Stable Summary Assessment Summary Pt with improved ambulation today and decreased pain levels. Able to transfer safely in/out of bed, toilet and chair with SBA-CGA and cues. Frequency of Treatment Frequency Of Treatment Twice a Day Recommendations To Nursing Amount of Assist Needed 1 Person Assist Discharge Recommendations PT Discharge Recommendations Home with 24/ Assist Outpatient PT
--- NOTE | 2018-01-15 11:00 | PM.DS.1 ---
History of Present Illness Date Patient Seen: 01/15/18 Time Patient Seen: 11:00 Chief complaint: [id number] Narrative: The patient has had progressively worsening right knee pain with radiographic changes consistent with arthritis. Non-operative management has failed and the patient has requested total knee replacement. The risks, benefits and alternatives to surgery were discussed with the patient prior to proceeding. Risks discussed included, but were not limited to, failure to relieve pain, stiffness, infection, nerve damage, deep venous thrombosis, pulmonary embolism, stroke, coma, heart attack, permanent paralysis and , as well as the potential need for eventual revision of the prosthetic. Discharge Providers Date of admission: 01/14/18 06:07 Primary care physician: Supriya Crews PA-C Consults: 12/30/17 10:34 Consult to Pastoral Services Routine Comment: RT TKA 01/1401/14/18 06:00 Consult to Anesthesiology Routine Comment: Consulting Provider: Anesthesiologist Reason for consultation: Regional block for post operative pain control 01/14/18 11:31 Consult to Discharge Planning Routine Comment: Consult to Hospitalist Service Routine Comment: Consulting Provider: Lopez Higgins Reason for consultation: diabetic control Has provider been notified: Yes Consult to Physical Therapy Evaluate & Treat Comment: oob today Physician Instructions: postop TKA protocol Consult to Respiratory Therapy Evaluate & Treat Comment: Physician Instructions: Evaluate and treat 01/14/18 11:59 Consult to Pastoral Services Routine Comment: post op care and encouragement Discharge provider: Pari Palomares PA-C Discharge Date: 01/15/18 Summary Discharge Diagnosis: s/p total knee arthroplasty Diabetes Hospital Course: Patient admitted for right total knee arthroplasty with Dr. Caceres, and she consented to procedure. Hospital course was unremarkable. On postop day 1. Patient was feeling well and ready to go home. Her pain was well controlled with oxycodone. ASA for DVT prophylaxis. Patient is diabetic and was evaluated by Medicine and proper insulin scale was used. She has been up with physical therapy throughout her stay. Status at Discharge Functional status at discharge: uses cane/walker Exam Vital Signs (past 8 hours): - 01/15/18 03:35 01/15/18 08:00 Temperature 97.9 F 98.0 F Pulse Rate 58 L 63 Respiratory Rate 16 16 Blood Pressure 109/59 L 129/67 Pulse Oximetry 96 96 Oxygen Delivery Method Room Air Oxygen Flow Rate 0 Narrative Exam Narrative: Patient lying in bed in no acute distress. She is alert and oriented x3. Dressing on right knee is CDI. Waldo wrap in place. Drain is still in place. Calves are soft, compressible, nontender bilaterally. Sensation intact light touch throughout bilateral lower extremities. Pulses are symmetrical. Her pain is well controlled this morning. She denies any nausea, chest pain, or shortness of breath. Objective Labs Result Diagrams: 01/15/18 06:30 Labs: Laboratory Results - last 24 hr 01/15/18 06:30 Hgb 12.0 Hct 35.9 L Discharge Plan Discharge Plan Patient Disposition: Home Discharge Med Rec/Prescriptions Prescriptions: Continue fexofenadine [Tammy Allergy] 180 mg tablet 180 mg PO DAILY RF: 0 cholecalciferol (vitamin D3) 2,000 unit capsule 2,000 unit PO DAILY RF: 0 insulin NPH isoph U-100 human [Humulin N NPH U-100 Insulin] 100 unit/mL suspension 25 unit SUBCUT QAM RF: 0 aspirin 81 MG tablet,delayed release (DR/EC) 81 mg PO QDAY Qty: 0 RF: 0 ascorbic acid (vitamin C) 500 MG tablet 500 mg PO QDAY Qty: 0 RF: 0 simvastatin [Zocor] 10 MG tablet 10 mg PO HS Qty: 90 RF: 3 lisinopril [Prinivil] 20 mg tablet 20 mg PO Q DAY Qty: 90 RF: 4 triamterene-hydrochlorothiazid [Dyazide] 37.5-25 mg capsule 1 cap PO QDAY Qty: 90 RF: 4 metformin 1,000 mg tablet 1,000 mg PO BID Qty: 180 RF: 0 insulin NPH isoph U-100 human [Humulin N NPH U-100 Insulin] 100 unit/mL Suspension 28 unit SUBCUT BEDTIME RF: 0 insulin regular hum U-500 conc 500 unit/mL (3 mL) Insulin Pen 10 unit SUBCUT TID RF: 0 empagliflozin [Jardiance] 10 mg Tablet 10 mg PO QAM RF: 0 Glucose: Home Monitor 1 dev miscellaneous DIRECTED RF: 0 Glucose: Test Strips 1 str miscellaneous BID RF: 0 Lancets 1 dev miscellaneous BID RF: 0 [place] 1 ea miscellaneous BID RF: 0 Follow up/Referrals: Esperanza Piña MD [Physician] - (Follow up in 10-14 days with TOO) Provider Discharge Instructions Cold/Heat Therapy: May use ice packs for another week. Other treatments: Leave aquacel dressing in place until follow up appointment. It will be removed then. Remove gauze dressing in 48 hours from old hemovac site. Visit Report/Discharge Packet Instructions: DI for Knee Replacement, DI for Constipation Visit Report Forms: Stroke Signs & Symptoms Discharge Data Primary Care Provider: Supriya Crews Attending Provider: Esperanza Piña Admit Date/Time: 01/14/18 06:07 Quality VTE Deep Vein Thrombosis/Pulmonary Embolism Present on Admission: No
--- NOTE | 2018-01-15 13:03 | PC.NURSE ---
Discharge: Pt feels ready to d/c home. She understands the ruano path process and had reviewed the information prior to coming in. PT has seen and they gave her their final instructions. Seen by PA and received their final instructions. Hemovac d/c intact, dry gauze dressing applied, pt and spouse understand it should be removed in 48 hours. Discussed wound care for aquacel dressing, leave in place until appointment. may shower with dressing on, pat dry, leave it alone. pt has been up in room and gait is steady. Reviewed d/c instructions and packet given. Already has rx at home. Pt understands not to take meloxicam and other NSAID's at the same time per PA instructions. Questions answered. D/c home via auto w/spouse.
--- NOTE | 2018-01-16 08:24 | CM.IDA ---
Late Entry. Attempted to meet w/pt before she left the medical floor yesterday; pt was ruano path and had DC home w/spouse. JW Discharge Planning/Care Management CM Discharge Assessment Start: 01/14/18 15:35 Freq: Status: Discharge Protocol: Document 01/14/18 15:35 KJS (Rec: 01/14/18 15:41 KJS [id number]) Discharge Planning Assessment Assigned Agricultural [employer] DONNA Barahona Contact Information Shin Garcia (spouse) [phone] Advance Directives? Yes Advance Directives on File No History Provided By Medical Record Has Patient been admitted in last 30 No days? Prior Living Arrangements House Household Members spouse Comment Unclear at this time. Patient in surgery at time of initial visit in AM on 01-14-18. Discharge Plan Home Referrals Initiated Other Whiteboard Updated in Patient Room with No name and ext. 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 Patient is a 73yr old female admitted to [facility] for [facility]opedic surgery performed on 01-14-[address] Piña. Primary payor is 1) [place]. PCP listed is Supriya Crews PA-C. Attempted to meet patient this AM to explain role. Patient currently in surgery and not anticipated to be in room until later this AM. [employer] unable to check back in with patient/family today. Will defer to [employer] for tomorrow. Review Status In Process Please Provide Date Initial DC 01/14/18 Assessment Was Performed Next Review Type Continued Stay Review Pre-Anesthesia Assessment Start: 12/30/17 09:57 Freq: Status: Complete
== END 2018-01-15 11:30 | disposition home or self-care (01) | DRG 470 ==
PROVIDERS: Admitting Provider Orthopaedic Surgery; PCP Physician Assistant; Referring Provider Internal Medicine Endocrinology, Diabetes & Metabolism; Visit Provider Orthopaedic Surgery
PROC: 0SRC0JZ Replacement of Right Knee Joint with Synthetic Substitute, Open Approach (ICD-10-PCS; CPT 27447; principal; 2018-01-14 07:45)
DX: M17.11 Unilateral primary osteoarthritis, right knee (principal); E66.9 Obesity, unspecified; Z68.37 Body mass index [BMI] 37.0-37.9, adult; I10 Essential (primary) hypertension; E11.9 Type 2 diabetes mellitus without complications; Z79.4 Long term (current) use of insulin
CPT/HCPCS: 36415; 64447; 73560; 82962; 85014; 85018; 90471; 90656; 97116; 97161; 97530; C1776; C9290; J0690; J2250; J2704; J3010; J3370; Q2038

== ENCOUNTER → 2018-02-03 16:41 | Outpatient (CLI) | payer OTHER, SELFPAY ==
[2018-01-14 11:49] VITALS: BMI 36.8
[2018-02-03 17:10] LABS: Bacteria Urine None Seen; RBC Urine None Seen (0-5/HPF); WBC Urine None Seen (0-5/HPF)
[2018-02-03 17:53] LABS: Appearance Urine UA CLEAR; Bilirubin Urine UA NEGATIVE (NEGATIVE); Color Urine UA YELLOW; Glucose Urine UA 2+ g/dL (Normal); Ketones Urine UA NEGATIVE (NEGATIVE); Leukocyte Esterase Urine UA NEGATIVE (NEGATIVE); Nitrite Urine UA NEGATIVE (Negative); Occult Blood Urine UA NEGATIVE (Negative); Protein Urine UA NEGATIVE (Negative); Urobilinogen Urine UA 0.2 E.U./dL (0.2)
[2018-02-03 18:21] LABS: Squamous Epithelial Cell Urine 1-5 /HPF
== END ==
PROVIDERS: PCP Physician Assistant; Visit Provider Physician Assistant
DX: R30.0 Dysuria (principal)
CPT/HCPCS: 81001

== ENCOUNTER → 2018-05-29 11:02 | Outpatient (CLI) | payer OTHER, SELFPAY ==
[2018-01-14 11:49] VITALS: BMI 36.8
--- NOTE | 2018-05-29 11:16 | DI.CT.S_ITS ---
PROCEDURE: CT CHEST WO CON INDICATIONS: 1 year follow lung nodule TECHNIQUE: Noncontrast 2.0-2.5 mm thick sections acquired from the pulmonary apices to the posterior costophrenic angles. 7 mm thick coronal and sagittal MIP reformats were then acquired. A low radiation dose technique was utilized. COMPARISON: [facility], CT, THORAX WITHOUT CONTRAST, 03/22/2017, 15:02. FINDINGS: Image quality: Diagnostic, given the low radiation dose technique. Lungs and pleura: A small nodular radiodensity seen 03/22/17 at the right middle lobe, at the minor fissure anteriorly is stable over time. Mediastinum: Heart size is normal. No pericardial effusion. No mediastinal adenopathy by size criteria. Thoracic aorta and central pulmonary arteries are normal in size. Esophagus is normal in caliber. No hiatal hernia. Bones and chest wall: No suspicious bony lesions. No vertebral body compression fractures. No axillary or supraclavicular adenopathy by size criteria. Thyroid gland is not well-seen by this noncontrast technique. Abdomen: Visualized upper abdomen solid organs and bowel loops appear normal in the absence of contrast. IMPRESSION: Stable appearance of a previously described 5 mm minor fissure right middle lobe region benign-appearing radiodensity given absence of change from 03/22/[address] scanning. As discussed above in this size category if the patient is low risk for now additional followup is recommended and if the patient is high risk a followup in 18-24 months would be recommended. Fleischner Society criteria for SOLID lung nodule followup. Nodule size (mm)Low-risk patientHigh-risk patient<6 (single or multiple)No routine followup.Optional CT at 12 months. 6-8 (single or multiple)CT at 6-12 months, then optional CT at 18-24 mo.CT at 6-12 months, then CT at 18-24 months. >8 (single)CT at 3 months, PET-CT, or biopsy. Same as for low-risk pts. >8 (multiple)CT at 3-6 months, then optional CT at 18-24 mo.CT at 3-6 months, then CT at 18-24 months. Recommendations do not apply to lung cancer screening, patients with immunosuppression, or patients with known primary cancer. Dictated by: Omar Wilburn M.D. on 05/29/2018 at 11:56 Approved by: Omar Wilburn M.D. on 05/29/2018 at 12:02
== END ==
PROVIDERS: PCP Physician Assistant; Visit Provider Family Medicine
DX: R91.1 Solitary pulmonary nodule (principal)
CPT/HCPCS: 71250

== ENCOUNTER → 2018-08-30 08:11 | Outpatient (CLI) | payer OTHER, SELFPAY ==
[2018-01-14 11:49] VITALS: BMI 36.8
[2018-08-30 09:00] LABS: Hemoglobin A1C% w Est Avg Glu 7.8 % (4.0-6.0)
[2018-08-30 09:20] LABS: Creatinine Urine Random 20.9 mg/dL
[2018-08-30 09:22] LABS: Alanine Aminotransferase 28 IU/L (9-52); Albumin 4.2 g/dL (3.5-5.0); Albumin Globulin Ratio 1.6 (1.0-2.8); Alkaline Phosphatase 86 U/L (38-126); Aspartate Aminotransferase 27 IU/L (14-36); BUN Creatinine Ratio 43.3 (6-22); Bilirubin Total 0.4 mg/dL (0.2-1.3); Blood Urea Nitrogen 39 mg/dL (7-17); Carbon Dioxide 27 mmol/L (22-32); Chloride 99 mmol/L (98-107); Cholesterol 132 mg/dL (140-199); Estimated Glomerular Filt Rate > 60.0 mL/min (>60); Globulin 2.6 g/dL (1.7-4.1); Glucose 96 mg/dL (80-110); HDL Cholesterol 55 mg/dL (40-60); HEMOLYSIS < 15 (0-50); LDL Cholesterol Calculated 54 mg/dL (<100); Potassium 4.4 mmol/L (3.4-5.1); Sodium 135 mmol/L (137-145); Total Protein 6.8 g/dL (6.3-8.2); Triglycerides 114 mg/dL (35-150)
[2018-08-30 09:25] LABS: Microalbumi Creatinin Ratio Ur 28.7 ug/mg CR (<30); Microalbumin Urine Random < 0.6 mg/dL (0-1.6)
== END ==
PROVIDERS: PCP Physician Assistant; Visit Provider Physician Assistant
DX: E11.9 Type 2 diabetes mellitus without complications (principal); E78.5 Hyperlipidemia, unspecified; I10 Essential (primary) hypertension
CPT/HCPCS: 36415; 80053; 80061; 82043; 82570; 83036

== ENCOUNTER → 2018-10-29 11:30 | Outpatient (CLI) | payer OTHER, SELFPAY ==
[2018-01-14 11:49] VITALS: BMI 36.8
--- NOTE | 2018-10-29 11:32 | DI.MG.S_ITS ---
BILATERAL DIGITAL SCREENING MAMMOGRAM 3D/2D WITH CAD: 10/29/2018 CLINICAL: Routine screening. Family history of breast cancer. Comparison is made to exams dated: 10/25/2017 mammogram, 10/23/2016 mammogram, and 10/18/2015 mammogram - [facility]. There are scattered fibroglandular elements in both breasts. Current study was also evaluated with a Computer Aided Detection (CAD) system. There are benign vascular calcifications in both breasts. There also is a benign biopsy clip in the right breast. No significant masses, calcifications, or other findings are seen in either breast. There has been no significant interval change. IMPRESSION: There is no mammographic evidence of malignancy. A 1 year screening mammogram is recommended. This exam was interpreted at Station ID: [id number]. NOTE: For mammograms, a report in lay terms will be sent to the patient. Approximately 15% of breast malignancies will not be visualized mammographically. In the management of a palpable breast mass, a negative mammogram must not discourage biopsy of a clinically suspicious lesion. Electronically Signed By: Leonor siddiqi/phoebe:10/29/2018 17:10:44 letter sent: Normal Exam ACR BI-RADS Category 2: Benign Finding(s) 3342F
== END ==
PROVIDERS: PCP Physician Assistant; Visit Provider Physician Assistant
DX: Z12.31 Encounter for screening mammogram for malignant neoplasm of breast (principal); Z80.3 Family history of malignant neoplasm of breast
CPT/HCPCS: 77063; 77067

== ENCOUNTER → 2018-12-17 09:37 | Outpatient (CLI) | payer OTHER, SELFPAY ==
[2018-01-14 11:49] VITALS: BMI 36.8
[2018-12-17 10:43] LABS: BUN Creatinine Ratio 45.6 (6-22); Blood Urea Nitrogen 41 mg/dL (7-17); Calcium 10.3 mg/dL (8.4-10.2); Carbon Dioxide 24 mmol/L (22-32); Chloride 98 mmol/L (98-107); Estimated Glomerular Filt Rate > 60.0 mL/min (>60); Glucose 121 mg/dL (80-110); HEMOLYSIS 18 (0-50); Potassium 4.7 mmol/L (3.4-5.1); Sodium 136 mmol/L (137-145)
== END ==
PROVIDERS: Family Provider Physician Assistant; PCP Physician Assistant; Visit Provider Internal Medicine Endocrinology, Diabetes & Metabolism
DX: E11.9 Type 2 diabetes mellitus without complications (principal); Z79.4 Long term (current) use of insulin
CPT/HCPCS: 36415; 80048; 83036

== ENCOUNTER → 2019-07-27 09:59 | Outpatient (CLI) | payer MEDICARE, SELFPAY ==
[2018-01-14 11:49] VITALS: BMI 36.8
[2019-07-27 10:24] LABS: Hemoglobin A1C% w Est Avg Glu 8.4 % (4.0-6.0)
== END ==
PROVIDERS: Family Provider Physician Assistant; PCP Physician Assistant; Referring Provider Internal Medicine Endocrinology, Diabetes & Metabolism; Visit Provider Internal Medicine Endocrinology, Diabetes & Metabolism
DX: E11.9 Type 2 diabetes mellitus without complications (principal); Z79.4 Long term (current) use of insulin
CPT/HCPCS: 36415; 83036

== ENCOUNTER → 2019-11-05 11:01 | Outpatient (CLI) | payer MEDICARE, SELFPAY ==
[2018-01-14 11:49] VITALS: BMI 36.8
--- NOTE | 2019-11-05 | DI.MG.S_ITS ---
BILATERAL DIGITAL SCREENING MAMMOGRAM 3D/2D WITH CAD: 11/05/2019 CLINICAL: Family history of breast cancer. Routine screening. Comparison is made to exams dated: 10/29/2018 mammogram, 10/25/2017 mammogram, and 10/23/2016 mammogram - [facility]. There are scattered fibroglandular elements in both breasts. Current study was also evaluated with a Computer Aided Detection (CAD) system. There are benign vascular calcifications in both breasts. There also is a biopsy clip in the right breast. No significant masses, calcifications, or other findings are seen in either breast. There has been no significant interval change. IMPRESSION: BENIGN There is no mammographic evidence of malignancy. A 1 year screening mammogram is recommended. This exam was interpreted at Station ID: [id number]. NOTE: For mammograms, a report in lay terms will be sent to the patient. Approximately 15% of breast malignancies will not be visualized mammographically. In the management of a palpable breast mass, a negative mammogram must not discourage biopsy of a clinically suspicious lesion. Electronically Signed By: Leonor siddiqi/phoebe:11/05/2019 12:34:31 letter sent: Normal Exam ACR BI-RADS Category 2: Benign Finding(s) 3342F
== END ==
PROVIDERS: Family Provider Physician Assistant; PCP Nurse Practitioner Family; Referring Provider Physician Assistant; Visit Provider Physician Assistant
DX: Z12.31 Encounter for screening mammogram for malignant neoplasm of breast (principal); Z80.3 Family history of malignant neoplasm of breast
CPT/HCPCS: 77063; 77067

== ENCOUNTER → 2020-01-06 09:01 | Outpatient (CLI) | payer MEDICARE, SELFPAY ==
[2018-01-14 11:49] VITALS: BMI 36.8
[2020-01-06 11:14] LABS: Alanine Aminotransferase 35 IU/L (<35); Albumin 4.2 g/dL (3.5-5.0); Albumin Globulin Ratio 1.6 (1.0-2.8); Alkaline Phosphatase 87 U/L (38-126); Aspartate Aminotransferase 35 IU/L (14-36); BUN Creatinine Ratio 33.3 (6-22); Bilirubin Total 0.4 mg/dL (0.2-1.3); Blood Urea Nitrogen 36 mg/dL (7-17); Calcium 9.5 mg/dL (8.4-10.2); Carbon Dioxide 26 mmol/L (22-32); Chloride 98 mmol/L (98-107); Cholesterol 130 mg/dL (140-199); Estimated Glomerular Filt Rate 49.7 mL/min (>60); Globulin 2.6 g/dL (1.7-4.1); Glucose 179 mg/dL (80-110); HDL Cholesterol 44 mg/dL (40-60); HEMOLYSIS < 15 (0-50); LDL Cholesterol Calculated 51 mg/dL (<100); Potassium 4.8 mmol/L (3.4-5.1); Sodium 135 mmol/L (137-145); Total Protein 6.8 g/dL (6.3-8.2); Triglycerides 176 mg/dL (35-150)
== END ==
PROVIDERS: Family Provider Physician Assistant; PCP Registered Nurse; Referring Provider Registered Nurse; Visit Provider Registered Nurse
DX: E11.65 Type 2 diabetes mellitus with hyperglycemia (principal); E66.9 Obesity, unspecified; E78.5 Hyperlipidemia, unspecified; I10 Essential (primary) hypertension
CPT/HCPCS: 36415; 80053; 80061

== ENCOUNTER → 2020-04-06 13:12 | Outpatient (CLI) | payer MEDICARE, SELFPAY ==
[2018-01-14 11:49] VITALS: BMI 36.8
== END ==
PROVIDERS: Family Provider Physician Assistant; PCP Registered Nurse; Referring Provider Registered Nurse; Visit Provider Registered Nurse
DX: Z78.0 Asymptomatic menopausal state (principal); E11.9 Type 2 diabetes mellitus without complications; Z87.891 Personal history of nicotine dependence
CPT/HCPCS: 77080

== ENCOUNTER → 2020-05-12 10:50 | Outpatient (CLI) | payer MEDICARE, SELFPAY ==
[2018-01-14 11:49] VITALS: BMI 36.8
[2020-05-12 12:49] LABS: Alanine Aminotransferase 31 IU/L (<35); Albumin 4.4 g/dL (3.5-5.0); Albumin Globulin Ratio 1.4 (1.0-2.8); Alkaline Phosphatase 85 U/L (38-126); Aspartate Aminotransferase 35 IU/L (14-36); BUN Creatinine Ratio 36.4 (6-22); Bilirubin Total 0.3 mg/dL (0.2-1.3); Blood Urea Nitrogen 36 mg/dL (7-17); Calcium 10.4 mg/dL (8.4-10.2); Carbon Dioxide 29 mmol/L (22-32); Chloride 99 mmol/L (98-107); Estimated Glomerular Filt Rate 54.8 mL/min (>60); Globulin 3.2 g/dL (1.7-4.1); Glucose 136 mg/dL (80-110); HEMOLYSIS < 15 (0-50); Potassium 4.3 mmol/L (3.4-5.1); Sodium 135 mmol/L (137-145); Total Protein 7.6 g/dL (6.3-8.2)
== END ==
PROVIDERS: Family Provider Physician Assistant; PCP Registered Nurse; Referring Provider Registered Nurse; Visit Provider Registered Nurse
DX: I10 Essential (primary) hypertension (principal)
CPT/HCPCS: 36415; 80053

== ENCOUNTER → 2020-11-22 10:44 | Outpatient (CLI) | payer MEDICARE, SELFPAY ==
[2018-01-14 11:49] VITALS: BMI 36.8
--- NOTE | 2020-11-22 | DI.MG.S_ITS ---
BILATERAL DIGITAL SCREENING MAMMOGRAM 3D/2D WITH CAD: 11/22/2020 CLINICAL: Routine screening. Family history of breast cancer. Comparison is made to exams dated: 11/05/2019 mammogram, 10/29/2018 mammogram, 10/25/2017 mammogram, 10/23/2016 mammogram, and 10/18/2015 mammogram - [facility]. There are scattered fibroglandular elements in both breasts. Current study was also evaluated with a Computer Aided Detection (CAD) system. There are benign vascular calcifications in both breasts. There also is a biopsy clip in the right breast. No significant masses, calcifications, or other findings are seen in either breast. There has been no significant interval change. IMPRESSION: BENIGN There is no mammographic evidence of malignancy. A 1 year screening mammogram is recommended. This exam was interpreted at Station ID: [id number]. NOTE: For mammograms, a report in lay terms will be sent to the patient. Approximately 15% of breast malignancies will not be visualized mammographically. In the management of a palpable breast mass, a negative mammogram must not discourage biopsy of a clinically suspicious lesion. Electronically Signed By: Lenny rodriguez/phoebe:11/22/2020 11:11:58 letter sent: Normal Exam ACR BI-RADS Category 2: Benign Finding(s) 3342F
== END ==
PROVIDERS: Family Provider Physician Assistant; PCP Registered Nurse; Referring Provider Registered Nurse; Visit Provider Registered Nurse
DX: Z12.31 Encounter for screening mammogram for malignant neoplasm of breast (principal); Z80.3 Family history of malignant neoplasm of breast
CPT/HCPCS: 77063; 77067

== ENCOUNTER → 2021-11-23 13:06 | Outpatient (CLI) | payer MEDICARE, SELFPAY ==
[2018-01-14 11:49] VITALS: BMI 36.8
--- NOTE | 2021-11-23 | DI.MG.S_ITS ---
BILATERAL DIGITAL SCREENING MAMMOGRAM 3D/2D WITH CAD: 11/23/2021 CLINICAL: Routine screening. Family history of breast cancer. Comparison is made to exams dated: 11/22/2020 mammogram, 11/05/2019 mammogram, and 10/29/2018 mammogram - [facility]. There are scattered areas of fibroglandular density in both breasts (category b / 25%-50% glandular tissue). Current study was also evaluated with a Computer Aided Detection (CAD) system. There are benign vascular calcifications in both breasts. There also is a biopsy clip in the right breast. No significant masses, calcifications, or other findings are seen in either breast. There has been no significant interval change. IMPRESSION: BENIGN There is no mammographic evidence of malignancy. A 1 year screening mammogram is recommended. Based on the Tyrer Cuzick model (a risk assessment model) the patient's lifetime risk is 4.3% and her 10 year risk is 4.3%. According to the ACR, ACS, and NCCN guidelines, an annual breast MRI exam along with mammogram is recommended if the patient's lifetime risk is 20% or greater. This exam was interpreted at Station ID: [id number]. NOTE: For mammograms, a report in lay terms will be sent to the patient. Approximately 15% of breast malignancies will not be visualized mammographically. In the management of a palpable breast mass, a negative mammogram must not discourage biopsy of a clinically suspicious lesion. Electronically Signed By: Tavares guillen/phoebe:11/23/2021 15:07:09 letter sent: Normal Exam ACR BI-RADS Category 2: Benign Finding(s) 3342F
== END ==
PROVIDERS: Family Provider Physician Assistant; PCP Student in an Organized Health Care Education/Training Program; Referring Provider Student in an Organized Health Care Education/Training Program; Visit Provider Student in an Organized Health Care Education/Training Program
DX: Z12.31 Encounter for screening mammogram for malignant neoplasm of breast (principal); Z80.3 Family history of malignant neoplasm of breast
CPT/HCPCS: 77063; 77067

== ENCOUNTER → 2022-11-30 11:03 | Outpatient (CLI) | payer MEDICARE, SELFPAY ==
[2018-01-14 11:49] VITALS: BMI 36.8
--- NOTE | 2022-11-30 | DI.MG.S_ITS ---
BILATERAL DIGITAL SCREENING MAMMOGRAM 3D/2D WITH CAD: 11/30/2022 CLINICAL: Routine screening. Family history of breast cancer. Comparison is made to exams dated: 11/23/2021 mammogram, 11/22/2020 mammogram, and 11/05/2019 mammogram - [facility]. There are scattered areas of fibroglandular density in both breasts (category b / 25%-50% glandular tissue). Current study was also evaluated with a Computer Aided Detection (CAD) system. There are benign vascular calcifications in both breasts. There also is a biopsy clip in the right breast. No significant masses, calcifications, or other findings are seen in either breast. There has been no significant interval change. IMPRESSION: BENIGN There is no mammographic evidence of malignancy. A 1 year screening mammogram is recommended. Based on the Tyrer Cuzick model (a risk assessment model) the patient's lifetime risk is 3.9% and her 10 year risk is 0.0%. According to the ACR, ACS, and NCCN guidelines, an annual breast MRI exam along with mammogram is recommended if the patient's lifetime risk is 20% or greater. This exam was interpreted at Station ID: [id number]. NOTE: For mammograms, a report in lay terms will be sent to the patient. Approximately 15% of breast malignancies will not be visualized mammographically. In the management of a palpable breast mass, a negative mammogram must not discourage biopsy of a clinically suspicious lesion. Electronically Signed By: Juarez honeycutt/phoebe:11/30/2022 15:06:49 letter sent: Normal Exam ACR BI-RADS Category 2: Benign Finding(s) 3342F
== END ==
PROVIDERS: Family Provider Physician Assistant; PCP Student in an Organized Health Care Education/Training Program; Referring Provider Student in an Organized Health Care Education/Training Program; Visit Provider Student in an Organized Health Care Education/Training Program
DX: Z12.31 Encounter for screening mammogram for malignant neoplasm of breast (principal); Z80.3 Family history of malignant neoplasm of breast
CPT/HCPCS: 77063; 77067

== ENCOUNTER → 2023-02-01 08:56 | Outpatient (CLI) | payer MEDICARE, SELFPAY ==
[2018-01-14 11:49] VITALS: BMI 36.8
--- NOTE | 2023-02-01 | DI.ECHO.S_ITS ---
[facility] +---------+ : : [address] : : : : [id number] : : : : Phone: [phone]+ Echocardiogram Report + + :Name: CHANTELL HERNANDEZ Study Date: 02/01/2023 Height: 64 in : [id number] ReadingLocation: Weight: 230 lb : : Gender: Female BSA: 2.1 m2 : :: 1945 Age: 78 yrs BP: 195/102 mmHg: :Reason For Study: Cardiac Murmur : :Ordering Physician: JAMES, : :LUIS Performed By: Wendy Turcios : :Referring: LUIS RAMIREZ : + + Interpretation Summary Hypertension noted during this exam. 195/105 mmHg. The ejection fraction is estimated to be 65-70%. The study quality was technically difficult. The right ventricle is normal in size and function. No significant valvular abnormality. Procedure: A two-dimensional transthoracic echocardiogram with color flow and Doppler was performed. The study quality was technically difficult. There is no prior echocardiogram noted for this patient. A contrast injection of Definity was performed to improve assessment of LV function. The patient was in normal sinus rhythm during the exam. Left Ventricle: The left ventricle is normal in size. The left ventricle is hyperdynamic. The ejection fraction is estimated to be 65-70%. Diastolic parameters suggest a relaxation abnormality of the left ventricle, consistent with probable normal filling pressures. Right Ventricle: The right ventricle is normal in size and function. Atria: The left atrium is mildly dilated. Right atrial size is normal. The interatrial septum is not well visualized. Mitral Valve: The mitral valve is not well visualized. There is no mitral valve stenosis. There is no mitral regurgitation noted. Aortic Valve: The aortic valve is not well visualized. There is no hemodynamically significant valvular aortic stenosis. No aortic regurgitation is present. Tricuspid Valve: The tricuspid valve is not well visualized. There is no tricuspid stenosis. There is trace tricuspid regurgitation. Pulmonic Valve: The pulmonic valve is not well visualized. There is no pulmonic valvular stenosis. There is no pulmonic valvular regurgitation. Great Vessels: The aortic root is normal size. The ascending aorta is normal in size. The pulmonary is not well visualized. The inferior vena cava was not well visualized. Pericardium/ Pleura There is no pericardial effusion. There is no pleural effusion. MMode/2D Measurements & Calculations LVIDd: 3.6 cm LVOT diam: 1.7 cm LVIDs: 1.8 cm Ao root diam: 2.5 cm FS: 48.2 % asc Aorta Diam: 2.9 cm IVSd: 1.2 cm LVPWd: 1.2 cm LV mackenzie. diameter/BSA (cm/m^2): 1.7 LV sys. diameter/BSA (cm/m^2): 0.89 LA A2 area: 21.4 cm2 RA long axis: 4.7 cm LA A4 area: 19.3 cm2 RA area: 12.0 cm2 LA length (vol): 5.8 cm RA vol: 26.0 ml LA vol: 60.2 ml RA : 12.5 ml/m2 LA vol index: 29.0 ml/m2 RVD1 (basal): 4.0 cm TAPSE: 2.6 cm Doppler Measurements & Calculations MV E max gray: 50.8 cm/sec TR max gray: 146.4 cm/sec MV A max gray: 108.8 cm/sec TR max P.6 mmHg MV E/A: 0.47 PA V2 max: 111.9 cm/sec Lat Peak E' Gray: 9.1 cm/sec PA V2 mean: 80.9 cm/sec E/E' lat: 5.6 PA mean P.8 mmHg MV dec time: 0.21 sec PA pr(Accel): 48.2 mmHg Reading Physician:SHEREEN
== END ==
PROVIDERS: Family Provider Physician Assistant; PCP Student in an Organized Health Care Education/Training Program; Referring Provider Student in an Organized Health Care Education/Training Program; Visit Provider Student in an Organized Health Care Education/Training Program
DX: R01.1 Cardiac murmur, unspecified (principal)
CPT/HCPCS: 93306; Q9957

== ENCOUNTER 2023-04-10 07:17 | Day surgery (SDC) | payer MEDICARE, SELFPAY ==
[2018-01-14 11:49] VITALS: BMI 36.8
--- NOTE | 2023-04-10 | PATH_ITS ---
[facility] Accession Number: [id number] No. of containers..02 Tissue . 01 Material submitted: . PART A: colon - HEPATIC POLYP PART B: colon - TRANSVERSE COLON POLYPS . 01 Diagnosis: A. Hepatic Flexure Polyp: Fragments of tubular adenoma. . B. Transverse Colon Polyps: Tubular adenoma and hyperplastic polyps. MRV 04/15/2023 1523 Local . 01 Electronically signed: . Russ Harmon MD, PhD, Pathologist NPI- [id number] . 01 Gross description: . Part A: HEPATIC POLYP: Received in formalin are multiple fragment(s) of farrar, soft tissue measuring 0.1 x 0.1 x 0.1 cm to 0.3 x 0.3 x 0.2 cm submitted entirely in 1 cassette(s) Part B: TRANSVERSE COLON POLYPS: Received in formalin are 3 fragment(s) of farrar, soft tissue measuring 0.2 x 0.2 x 0.2 cm to 0.4 x 0.4 x 0.3 cm submitted entirely in 1 cassette(s) /MARBELLA 04/11/2023 2016 Local . 01 Pathologist provided ICD-10: D12.3 . 01 CPT . 359785, [id number] Specimen Comment: A courtesy copy of this report has been sent to [phone] Performed at: [facility] [address] [place] [address], [place], [place] [id number] MD Heriberto Moss MD Phone: [phone]
[2023-04-10 07:43] VITALS: BP 156/91; PULSE 100; RESP 18; TEMP 36.1; O2SAT 95
--- NOTE | 2023-04-10 08:45 | PM.HP.1 ---
History of Present Illness History of Present Illness Date Patient Seen: 04/10/23 Chief complaint: Colonoscopy Narrative: History of colon polyps [facility] Medical History (Updated 09/15/20 @ 07:29 by NITHYA Joe) Back pain Uterine fibroid Diverticulosis Pneumonia Osteoarthritis (Unknown) Diabetes (Unknown) Hyperlipemia (Unknown) Hypertension (Unknown) Surgical History Hx of cataract surgery (Unknown) Family History Sister Breast cancer Social History household members: spouse Smoking Status: Former smoker Tobacco: How many years used: 8 second hand exposure: No alcohol intake: former substance use type: does not use Meds Home Medications and Allergies Home Medications Medication Instructions Recorded Confirmed Type aspirin 81 mg tablet,delayed 81 mg PO QDAY ##0 07/09/12 04/10/23 History release ascorbic acid (vitamin C) 500 mg 500 mg PO QDAY ##0 02/28/17 04/10/23 History tablet cholecalciferol (vitamin D3) 50 2,000 unit PO DAILY 09/23/17 04/10/23 History mcg (2,000 unit) capsule Glucose: Home Monitor 1 dev miscellaneous DIRECTED 01/14/18 05/27/20 History One touch delica lancets #100 ea 09/01/18 05/27/20 Rx Insulin needles SUBCUT TID 10/22/18 05/27/20 History Test Strips #1 ea 10/22/18 05/27/20 History multivitamin with minerals-folic 1 tab PO 3XD 01/08/20 04/10/23 History acid 200 mcg chewable tablet (Adult Multivitamin Gummies) insulin glargine 100 unit/mL (3 50 unit SUBCUT BEDTIME 05/27/20 04/10/23 History mL) subcutaneous pen (Lantus Solostar U-100 Insulin) insulin lispro 100 unit/mL 15 unit SUBCUT TID 05/27/20 04/10/23 History subcutaneous pen ketoconazole 2 % topical cream 1 applic topical DAILY PRN Rash 05/27/20 04/10/23 History lactobacillus combo no.13 1 1 cap PO DAILY 05/27/20 04/10/23 History billion cell capsule,delayed release (Probiotic Pearls Complete) metformin 1,000 mg tablet 1,000 mg PO DAILY 05/27/20 04/10/23 History zinc 50 mg tablet 50 mg PO DAILY 05/27/20 04/10/23 History simvastatin 10 mg tablet See Rx Instructions .Route 05/15/21 04/10/23 Rx .COMPLEX #90 tabs amlodipine 2.5 mg tablet 2.5 mg PO BEDTIME 04/10/23 04/10/23 History Allergies Allergy/AdvReac Type Severity Reaction Status Date / Time No Known Drug Allergies Allergy Verified 04/10/23 07:53 Exam Vital Signs (past 8 hours): - 04/10/23 07:43 Temperature 96.9 F L Pulse Rate 100 H Respiratory Rate 18 Blood Pressure 156/91 H Pulse Oximetry 95 Oxygen Delivery Method Room Air Oxygen Delivery Method Room Air Narrative Exam Narrative: Oropharynx free of lesions Chest clear to auscultation percussion Cardiac exam reveals no S3 or murmur Assessment & Plan Assessment & Plan narrative: History of colon polyps need for follow-up colonoscopy. This may be her last 1. Risks, benefits, alternatives have been explained
--- NOTE | 2023-04-10 08:46 | PM.OP.COLON ---
Operative Date/Time/Diagnoses Date of procedure: 04/10/23 Pre-op diagnosis: See indication and findings Procedure & Clinicians Study performed: Colonoscopy Indications: History of polyps Surgeon: Dov Dos Santos Procedure Notes Procedure in detail: After informed consent was obtained the patient was placed in left lateral decubitus position. The video colonoscope was introduced the rectum slowly advanced cecum. Preparation was good. On slow withdrawal mucosa was carefully examined. The scope was removed. The patient tolerated procedure well. Blood loss none Complications none Sedation mac Findings 1. 8 mm semi pedunculated polyp in the hepatic flexure cold snared removed completely 2. Two 3-4 mm polyps in the mid transverse colon Jumbo biopsy removed completely 3. Moderate left-sided diverticulosis 4. Otherwise negative colonoscopy to cecum This probably should be Sarah's last colonoscopy unless there is I histologically advanced polyp present on pathology.
[2023-04-10 09:15] VITALS: BP 94/55; PULSE 88; RESP 15; TEMP 36.2; O2SAT 95
[2023-04-10 09:21] VITALS: BP 116/64; PULSE 87; RESP 14; TEMP 36.2; O2SAT 94
[2023-04-10 09:26] VITALS: BP 132/92; PULSE 83; RESP 18; TEMP 36.2; O2SAT 95
[2023-04-10 09:29] VITALS: BP 121/77; PULSE 84; RESP 20; TEMP 36.3; O2SAT 95
== END 2023-04-10 09:39 | disposition home or self-care (01) ==
PROVIDERS: Family Provider Physician Assistant; PCP Student in an Organized Health Care Education/Training Program; Referring Provider Internal Medicine Gastroenterology; Visit Provider Internal Medicine Gastroenterology
PROC: 0DJD8ZZ Inspection of Lower Intestinal Tract, Via Natural or Artificial Opening Endoscopic (ICD-10-PCS; CPT 45378; principal; 2023-04-10 08:30)
DX: Z12.11 Encounter for screening for malignant neoplasm of colon (principal); Z86.010 Personal history of colon polyps; K57.30 Diverticulosis of large intestine without perforation or abscess without bleeding; D12.3 Benign neoplasm of transverse colon; D12.6 Benign neoplasm of colon, unspecified
CPT/HCPCS: 45385; 45380; J2704; J3010

== ENCOUNTER → 2023-12-02 11:25 | Outpatient (CLI) | payer MEDICARE, SELFPAY ==
[2018-01-14 11:49] VITALS: BMI 36.8
--- NOTE | 2023-12-02 11:26 | DI.MG.S_ITS ---
BILATERAL DIGITAL SCREENING MAMMOGRAM 3D/2D WITH CAD: 12/02/2023 CLINICAL: Routine screening. Family history of breast cancer. Comparison is made to exams dated: 11/30/2022 mammogram, 11/23/2021 mammogram, 11/22/2020 mammogram, 11/05/2019 mammogram, 10/29/2018 mammogram, and 10/25/2017 mammogram - [facility]. There are scattered areas of fibroglandular density (category b / 25%-50% glandular tissue). Current study was also evaluated with a Computer Aided Detection (CAD) system. There is a biopsy clip in the right breast. No significant masses, calcifications, or other findings are seen in either breast. There has been no significant interval change. IMPRESSION: BENIGN There is no mammographic evidence of malignancy. A 1 year screening mammogram is recommended. Based on the Tyrer Cuzick model (a risk assessment model) the patient's lifetime risk is 3.5% and her 10 year risk is 0.0%. According to the ACR, ACS, and NCCN guidelines, an annual breast MRI exam along with mammogram is recommended if the patient's lifetime risk is 20% or greater. This exam was interpreted at Station ID: [id number]. NOTE: For mammograms, a report in lay terms will be sent to the patient. Approximately 15% of breast malignancies will not be visualized mammographically. In the management of a palpable breast mass, a negative mammogram must not discourage biopsy of a clinically suspicious lesion. Electronically Signed By: Jennifer Harvey M.D., Ph.D. jose/phoebe:12/03/2023 11:21:13 letter sent: Normal Exam ACR BI-RADS Category 2: Benign 3342F
== END ==
LOC: MAMMO 11:26
PROVIDERS: Family Provider Physician Assistant; PCP Student in an Organized Health Care Education/Training Program; Referring Provider Student in an Organized Health Care Education/Training Program; Visit Provider Student in an Organized Health Care Education/Training Program
DX: Z12.31 Encounter for screening mammogram for malignant neoplasm of breast (principal); Z80.3 Family history of malignant neoplasm of breast
CPT/HCPCS: 77063; 77067

== ENCOUNTER → 2025-02-16 11:15 | Outpatient (CLI) | payer MEDICARE, SELFPAY ==
[2018-01-14 11:49] VITALS: BMI 36.8
--- NOTE | 2025-02-16 11:19 | DI.MG.S_ITS ---
MM screening mammo BI: 02/16/2025. BI-RADS: 2 CLINICAL: 80-year old female for bilateral screening mammogram. Tyrer-Cuzick lifetime risk of 5.1%. Current reported family history of breast cancer: sister and second sister. The patient had a prior right breast biopsy. PRIOR EXAMS 12/02/2023, 11/30/2022, 11/23/2021. MAMMOGRAPHY TECHNIQUE: 2D and 3D (tomosynthesis) digital mammographic views obtained, with additional images as needed for full coverage. Current study was also evaluated with a Computer Aided Detection (CAD) system. DENSITY B. There are scattered areas of fibroglandular density. MAMMOGRAPHY FINDINGS Right: Biopsy marker present on the right. There are no suspicious masses, calcifications, or other findings in the breast. Left: No suspicious mass, asymmetry, microcalcification, or other abnormality seen. IMPRESSION: Right * No evidence of malignancy with benign findings. Left * No evidence of malignancy. RECOMMENDATIONS Bilateral * Annual screening mammography. OVERALL ASSESSMENT CATEGORY BI-RADS-2: Benign. The [employer] recommends annual screening mammography beginning at age 40 for women with average risk of breast cancer. ELECTRONICALLY SIGNED: Prisca Joe M.D. on 02/17/2025 at 03:46:37 PM PT Interpreting Station ID: [id number]
== END ==
LOC: MAMMO 11:19
PROVIDERS: PCP Student in an Organized Health Care Education/Training Program; Referring Provider Student in an Organized Health Care Education/Training Program; Visit Provider Student in an Organized Health Care Education/Training Program
DX: Z12.31 Encounter for screening mammogram for malignant neoplasm of breast (principal); Z80.3 Family history of malignant neoplasm of breast
CPT/HCPCS: 77063; 77067